=== PATIENT | female | born 1960 | race Caucasian/White ===

== ENCOUNTER 2018-07-28 09:05 | Day surgery (SDC) | payer OTHER ==
[2018-07-28] MEDS ORDERED: CEFAZOLIN 2 GM/50 ML (PMX) 50 ML IVPB (10:00)
[2018-07-28] MEDS: SOD CHLORIDE 0.9% 1,000 ML IV (10:39)
[2018-07-28] MEDS ORDERED: PROPOFOL 100 ML (14:24)
[2018-07-28] MEDS ORDERED: LIDOCAINE 2% (SDV) 5 ML INJ ×2 (14:27→14:29)
[2018-07-28] MEDS ORDERED: FENTAnyl 50 MCG/ML VIAL (14:27)
[2018-07-28] MEDS ORDERED: ONDANSETRON 4 MG INJ (14:43)
[2018-07-28] MEDS ORDERED: DEXAMETHASONE 4 MG/ML 5 ML INJ (14:43)
[2018-07-28] MEDS ORDERED: HYDROCODONE/APAP (5/325) TAB PO (15:00)
[2018-07-28] MEDS: BUPIVACAINE 0.25% (MPF) 30 ML INJ (15:04)
[2018-07-28] MEDS ORDERED: OXYCODONE/ACETAMINOPHEN (5/325) TAB PO ×2 (15:30)
[2018-07-28] MEDS ORDERED: KETOROLAC 30 MG INJ IV (15:30)
[2018-07-28] MEDS ORDERED: EPHEDrine SULFATE 50 MG/5 ML SYG IV (15:30)
[2018-07-28] MEDS ORDERED: LABETALOL HCL 20MG INJ IV (15:30)
[2018-07-28] MEDS ORDERED: DIPHENHYDRAMINE 50 MG INJ IV (15:30)
[2018-07-28] MEDS ORDERED: MEPERIDINE 25 MG INJ IV (15:30)
[2018-07-28] MEDS ORDERED: HYDROmorphONE 1 MG/5 ML IV SYRINGE IV ×3 (15:30)
[2018-07-28] MEDS ORDERED: ONDANSETRON 4 MG INJ IV (15:30)
[2018-07-28] MEDS ORDERED: FENTAnyl 50 MCG/ML VIAL IV ×3 (15:30)
[2018-07-28] MEDS ORDERED: hydrALAzine 20 MG INJ IV (15:30)
[2018-07-28] MEDS ORDERED: ALBUTEROL 0.083% (NEB) 2.5 MG/3 ML AMP HHN (15:30)
== END 2018-07-28 16:24 | disposition home or self-care (01) ==
LOC: SDS 09:05
DX: D17.1 Benign lipomatous neoplasm of skin and subcutaneous tissue of trunk (principal)
CPT/HCPCS: 14001; 88307